=== PATIENT | female | born 1945 | race Caucasian/White ===

== ENCOUNTER 2017-01-27 02:06 | Inpatient (IN) | payer OTHER, BC ==
[~2017-01-27] VITALS: Ht 147.3 cm; Wt 84.8 kg
[2017-01-27] VITALS (42 sets, daily range): BP systolic 79–120; BP diastolic 53–85
--- NOTE | ~2017-01-27 | EKG ---
[address] [place] [address] ELECTROCARDIOGRAM REPORT Name: DENAE FITCH Room #: 242-P ADM IN M.R.#: [id number] Admission: 01/27/17 Attend Phys: Porfirio Núñez Discharge: Date of : 49 Report #: [id number] THIS REPORT FOR: //name// [facility] ED Test Date: 2017-01-27 Test Time: 02:08:15 Pat Name: DENAE FITCH Department: Room: 242 Gender: F End Matcher: [id number] : 1945 Requested By: Ana Canas Order Number: [id number] MD: Lukas Lei Measurements Intervals [place] Rate: 101 P: 57 [place]: 169 QRS: -55 QRSD: 121 T: 71 QT: 379 QTc: 492 Interpretive Statements Sinus tachycardia IVCD, consider atypical RBBB Left ventricular hypertrophy Anterolateral infarct, acute (LAD) No previous ECG available for comparison Electronically Signed On 01-27-2017 8:28:51 CDT by Lukas Lei [email or web address] <ELECTRONICALLY SIGNED> By: Lukas Lei MD, [facility] 01/27/17 0828 7 7 Lukas Lei MD, [facility] /EPI
--- NOTE | ~2017-01-27 | CATHLAB ---
[facility] [address] [place] [address] INVASIVE PROCEDURE REPORT Name: DENAE FITCH Room #: 242-P ADM IN M.R.#: [id number] Admission: 01/27/17 Attend Phys: Porfirio Nielsen Discharge: Date of : 49 Date of Service: 01/27/17 1059 Report #: [id number] THIS REPORT FOR: //name// APPROVED REPORT Patient Details Patient Status: In-Patient Room #: The patient is a 71 year-old female Event Personnel Porfirio Núñez International Manager, Marcia Casillas RN RN, Teddy Bejarano RN Monitor, Yojana Kim RTR Monitor, Candelaria Reed Scrub Procedures Performed Art Access - R femoral artery* Coronary Angiography Only [id number] CORANG RADHA Place w/wo Plasty Single LAD [id number] Initial Mod Sed Same Phys/QHP Gr5y 123488 Indication STEMI (>0 to less than or equal to 6 hours) Risk Factors Arterial Hypertension, Hypercholesterolemia Procedure Narrative The patient was brought emergently to the Cardiac Catheterization Laboratory and was prepped and draped in a sterile manner. The Right Groin^ was infiltrated with 1% Lidocaine subcutaneous anesthesia. A PINNACLE 6FR Sheath #[id number] sheath was inserted into the RFA 6fr^. Coronary angiography was performed using coronary diagnostic catheters. The right coronary system was accessed and visualized with a JR 4 catheter. The left coronary system was accessed and visualized with a VISTA 6FR JL4 #[id number] catheter. The patient tolerated the procedure well and there were no complications associated with the procedure. Intraoperative Conscious Sedation Sedation start time: 03:03 Case end Time: 03:32 Versed 2.0 mg Fluoro Time: 7.23 minutes Dose: DAP 7953.20 cGycm2 1187 mGy Contrast Type and Amount: Omnipaque 135 ml [facility] [place] [address] INVASIVE PROCEDURE REPORT Name: DENAE FITCH Room #: 242-P [facility] IN .R.#: [id number] Admission: 01/27/17 Attend Phys: Porfirio Nielsen Discharge: Date of : 49 Date of Service: 01/27/17 1059 Report #: [id number] Diagnostic Cath Left Main NORMAL ORIGIN AND MODERATE SIZE BIFURCATES INTO LAD,LCX, AND RAMUS. FREE OF HIGH GRADE OBSTRUCTIVE LESIONS. LAD Moderate caliber vessel which is totally occluded proximally before the first septal twister doffer. No collateral flow from left circumflex or right coronary artery noted. post revascularization: The LAD is widely pain in the sciatic of previous high-grade stenosis. The stent appears to be fully deployed. NEPTALI-3 flow was established. The vessel courses in the anterior interventricular sulcus cauterized smaller second diagonal and multiple septal perforators feel high-grade disease as it terminates small-caliber bifurcating vessel at the apex. Circumflex Moderate caliber vessel has a mild 15-20% proximal plaque at the continues in the AV groove giving rise to small marginal branch and a moderate caliber lateral wall marginal. No significant obstructive lesions are noted beyond the initial irregularity. Right Coronary Moderate to large caliber vessel normal origin. Has luminal irregularities as it proceeds give rise to posterior descending posterior lateral branch free of high-grade stenosis. R PDA Moderate caliber vessel coursing in the posterior interventricular sulcus free of high-grade disease Left Ventriculography Left Ventriculography was not performed. Hemodynamics The aortic pressure is 98/71 mmHg with a mean of 85 mmHg. PCI Technique Lesion Anticoagulation was achieved with Angiomax. Percutaneous coronary intervention was performed on the proximal left anterior descending artery segment. The lesion stenosis prior to intervention was 100% with NEPTALI 0 flow. A VISTA 6FR JL4 #[id number] Guide Catheter was used to engage the ostium. A Luge Wire (J) .014 X 182CM #[id number] Interventional Guidewire was used to cross the lesion. BALLOON DILATION A Balloon catheter Sprinter OTW 2.5 x 15 #[id number] was inserted and inflated up to 9.00atm for 22seconds. Additional Inflation: 9.00atm for 10seconds. Additional Inflation: 4.00atm for 23seconds. Post-balloon dilatation of the vessel is small in caliber type III with a diagonal branch has a proximal lesion noted up. This is eccentric and ranging at approximately 60-75%. The vessel is small in caliber under 1.5 mm in diameter. The LAD then courses device was smaller second's septals and diagonal branches as it terminates in [facility] [address] [place] [address] INVASIVE PROCEDURE REPORT Name: DENAE FITCH Room #: 242-P ADM IN M.R.#: [id number] Admission: 01/27/17 Attend Phys: Porfirio Nielsen Discharge: Date of : 49 Date of Service: 01/27/17 1059 Report #: [id number] the apex of the heart STENT DEPLOYMENT A drug-eluting stent RESOLUTE OTW 2.25 X 22 #[id number] was inserted and inflated up to 9.00atm for 10seconds. Post-stenting the vessel is widely patent with some decrease flow. Nicardipine and IV nitroglycerin were given with NEPTALI-3 flow reestablished. The vessel tapers towards the apex free of significant obstructive lesions. Final angiography reveals % stenosis with NEPTALI 3 flow. Conclusion 1. Coronary artery disease single vessel involving the proximal LAD 2. Successful percutaneous revascularization and RADHA stent deployment to the ulcerated eccentric plaque with excellent NEPTALI-3 flow Recommendations Cardiac Risk Reduction Program Aggressive Medical Therapy Medications Administered Prasugrel Cardiac Rehabilitation Referral <ELECTRONICALLY SIGNED> By: Porfirio Núñez MD 01/27/17 1059 1059 1059 Porfirio Núñez MD /INF
--- NOTE | ~2017-01-27 | EKG ---
[place] [address] [facility] [place] [address] ELECTROCARDIOGRAM REPORT Name: DENAE FITCH Room #: 210-P ADM IN M.R.#: [id number] Admission: 01/27/17 Attend Phys: Porfirio Núñez Discharge: Date of : 49 Report #: [id number] THIS REPORT FOR: //name// [facility] Test Date: 2017-01-28 Test Time: 05:54:13 Pat Name: DENAE FITCH Department: Room: 210 P Gender: F Fisher Net: KATHE : 1945 Requested By: Porfirio Núñez Order Number: [id number] MD: Lukas Lei Measurements Intervals [place] Rate: 110 P: 47 VT: 150 QRS: 52 QRSD: 83 T: 67 QT: 334 QTc: 452 Interpretive Statements Sinus tachycardia Probable anteroseptal infarct, recent Lateral leads are also involved Compared to ECG 01/27/2017 04:33:29 Injury pattern is less pronounced Electronically Signed On 01-28-2017 8:11:00 CDT by Lukas Lei [email or web address] <ELECTRONICALLY SIGNED> By: Lukas Lei MD, [facility] 01/28/17810 0554 0554 Lukas Lei MD, [facility] /EPI
--- NOTE | ~2017-01-27 | EKG ---
[address] [address] ELECTROCARDIOGRAM REPORT Name: DENAE FITCH Room #: 242-P ADM IN M.R.#: [id number] Admission: 01/27/17 Attend Phys: Porfirio Núñez Discharge: Date of : 49 Report #: [id number] THIS REPORT FOR: //name// [facility] Test Date: 2017-01-27 Test Time: 04:33:29 Pat Name: DENAE FITCH Department: Room: 242 P Gender: F Stitching Department Supervisor: KRISTEN : 1945 Requested By: Paris Canas Order Number: [id number] MD: Lukas Lei Measurements Intervals [place] Rate: 104 P: 48 RI: 173 QRS: 19 QRSD: 95 T: 55 QT: 377 QTc: 496 Interpretive Statements Sinus tachycardia Anterolateral infarct, acute No previous ECG available for comparison Electronically Signed On 01-27-2017 8:29:52 CDT by Lukas Lei [email or web address] <ELECTRONICALLY SIGNED> By: Lukas Lei MD, [facility] 01/27/17 0829 0433 0433 Lukas Lei MD, [facility] /EPI
[~2017-01-27 02:06] MED LIST: ALIGN4 MG PO; ATIVAN1 MG PO; CARVEDILOL12.5 MG PO; CYMBALTA60 MG PO; NORCO 5-325 TA1 EACH PO; REMERON15 MG PO; SEROQUEL 100 M100 M1 PO
[2017-01-27 02:21] LABS: ABSOLUTE NEUTROPHILS 6.9 thou/uL (1.4-8.2); BASOPHILS 0.5 % (0.0-2.0); EOSINOPHILS 0.9 % (0.0-3.0); HEMATOCRIT 37.2 % (37.0-47.0); HEMOGLOBIN 12.7 gm/dL (12.0-15.0); LYMPHOCYTES 14.8 % (24.0-44.0); MCH 31.8 pg (26.0-34.0); MCHC 34.1 g/dL (28.0-37.0); MCV 93.2 fL (80.0-100.0); MONOCYTES 7.8 % (1.0-8.0); PLATELET COUNT 131 thou/uL (150-400); RBC 3.99 mil/uL (4.20-5.00); RDW 15.3 % (10.5-14.5); WBC 9.1 thou/uL (4.0-11.0)
[2017-01-27 02:22] LABS: MANUAL DIFF NO
[2017-01-27 02:28] LABS: CALCIUM 8.6 mg/dL (8.5-10.1); CREATININE 0.8 mg/dL (0.6-1.0); POTASSIUM 3.8 mmol/L (3.5-5.1)
[2017-01-27 02:34] LABS: APTT 27.7 Seconds (24.5-32.8); PROTIME 10.1 Seconds (9.3-11.4)
[2017-01-27 02:37] LABS: TROPONIN-I 8.32 ng/mL (<0.04-0.07)
[2017-01-27] MEDS ORDERED: SEROQUEL 25 MG25 M1 PO (09:25)
[2017-01-28 03:55] LABS: HEMATOCRIT 30.9 % (37.0-47.0); HEMOGLOBIN 10.3 gm/dL (12.0-15.0); MCH 31.7 pg (26.0-34.0); MCHC 33.2 g/dL (28.0-37.0); MCV 95.5 fL (80.0-100.0); RBC 3.23 mil/uL (4.20-5.00); RDW 15.3 % (10.5-14.5); WBC 9.1 thou/uL (4.0-11.0)
[2017-01-28 04:07] LABS: ANION GAP 9 mmol/L (7-16); BUN 12 mg/dL (7-18); CALCIUM 7.7 mg/dL (8.5-10.1); CHLORIDE 104 mmol/L (98-107); CHOLESTEROL 102 mg/dL (<200); CO2 22 mmol/L (21-32); CREATININE 0.8 mg/dL (0.6-1.0); GLUCOSE 123 mg/dL (74-106); HDL CHOLESTEROL 44 mg/dL (>40); LDL CHOLESTEROL 47 mg/dL (<100); SODIUM 135 mmol/L (136-145); TC:HDL 2.3 Ratio (Not establshd); TRIGLYCERIDE 57 mg/dL (<150); VLDL 11 mg/dL (<40)
[2017-01-28 04:12] LABS: SERUM ASSESSMENT Clear
[2017-01-28 04:20] VITALS: BP 105/64
[2017-01-28 07:35] VITALS: BP 122/74
[2017-01-28 11:38] VITALS: BP 127/76
[2017-01-28 13:29] LABS: ABG SAMPLE TYPE ARTERIAL; BE(vivo) -3.6 mmol/L (-2 to +3); HCO3 20.9 mmol/L (22.0-26.0); LACTATE 1.38 mmol/L (0.5-2.0); O2Hb 94.7 % (92.0-98.0); PO2 82.1 mmHg (80.0-100.0); STICK SITE R.RADIAL; pH 7.382 (7.360-7.450)
[2017-01-28 15:29] VITALS: BP 121/73
[2017-01-28 19:59] VITALS: BP 129/66
[2017-01-29 04:11] VITALS: BP 103/66; BP 149/95
[2017-01-29 07:05] VITALS: BP 129/79
[2017-01-29 11:11] VITALS: BP 129/84
[2017-01-29 15:26] VITALS: BP 139/100
[2017-01-29 20:02] VITALS: BP 122/59
[2017-01-29 23:45] VITALS: BP 117/78
[2017-01-30 03:58] VITALS: BP 142/82
[2017-01-30 06:55] VITALS: BP 117/71
[2017-01-30] MEDS ORDERED: EFFIENT10 MG PO (10:12)
[2017-01-30] MEDS ORDERED: LISINOPRIL5 MG PO (10:12)
[2017-01-30] MEDS ORDERED: ASPIRIN325 PO (10:12)
[2017-01-30] MEDS ORDERED: LIPITOR40 MG PO (10:12)
[2017-01-30] MEDS ORDERED: NITROGLYCERIN0.4 MG SUBLING (10:12)
[2017-01-30 11:58] VITALS: BP 117/84
[2017-01-30 13:13] VITALS: BP 117/84
== END 2017-01-30 14:21 | disposition home or self-care (01) | DRG 246 ==
LOC: ER 02:06 → ICU 02:42 → TBA 02:42 → ICU 03:10 → 2N 18:17
PROVIDERS: Emergency Medicine; Internal Medicine
DX: I21.09 ST elevation (STEMI) myocardial infarction involving other coronary artery of anterior wall (principal); J81.0 Acute pulmonary edema; I10 Essential (primary) hypertension; F32.9 Major depressive disorder, single episode, unspecified; F41.9 Anxiety disorder, unspecified; I25.10 Atherosclerotic heart disease of native coronary artery without angina pectoris; K21.9 Gastro-esophageal reflux disease without esophagitis; E78.5 Hyperlipidemia, unspecified; M19.90 Unspecified osteoarthritis, unspecified site; E66.9 Obesity, unspecified; Z88.1 Allergy status to other antibiotic agents; Z68.39 Body mass index [BMI] 39.0-39.9, adult; Z90.49 Acquired absence of other specified parts of digestive tract; Z82.49 Family history of ischemic heart disease and other diseases of the circulatory system; Z83.3 Family history of diabetes mellitus
CPT/HCPCS: 10081

== ENCOUNTER 2017-02-04 11:37 | Inpatient (IN) | payer OTHER, BC ==
[~2017-02-04] VITALS: Ht 177.8 cm; Wt 80.6 kg
--- NOTE | ~2017-02-04 | 2DMMODE ---
[facility] [address] [place] [address] 2 D/M-MODE ECHOCARDIOGRAM Name: DENAE FITCH Room #: 209-P ADM IN M.R.#: [id number] Admission: 02/04/17 Attend Phys: Chin Avalos Discharge: Date of : 49 Date of Service: 02/04/17 1617 Report #: [id number] THIS REPORT FOR: //name// APPROVED REPORT Study performed: 02/04/2017 15:30:42 EXAM: Limited 2D Echocardiogram Patient Location: Bedside Room #: 209 Status: routine BSA: 1.74 HR: 97 bpm BP: 113/92 mmHg Other Information Study Quality: Good Indications Dyspnea CAD Hypertension/HDD S^P STEMI Left Ventricle The left ventricle is normal size. There is akinesis in the apex wall. There is akinesis in the septal wall. There is akinesis in the apical anterior wall. There is severe hypokinesis in the mid-anterior wall. There is moderate to severe hypokinesis in the apical inferior wall. There is normal left ventricular wall thickness. Left ventricular ejection fraction is to severely decreased. LVEF is 20-25%. The left ventricular diastolic function is normal. Right Ventricle The right ventricle is normal size. Atria Left atrium is dilated. Right atrium is at the upper limits of normal. Aortic Valve The aortic valve is normal in structure. Mitral Valve The mitral valve is normal in structure. [facility] [address] [place] [address] 2 D/M-MODE ECHOCARDIOGRAM Name: DENAE FITCH Room #: 209-P ADM IN M.R.#: [id number] Admission: 02/04/17 Attend Phys: Chin Avalos Discharge: Date of : 49 Date of Service: 02/04/177 Report #: [id number] Tricuspid Valve The tricuspid valve is normal in structure. Pulmonic Valve Pulmonic valve is not well visualized. Great Vessels The aortic root is normal in size. The inferior vena cava is not well visualized. Pericardium Small pericardial effusion. <Conclusion> The left ventricle is normal size. There is akinesis in the apex wall. There is akinesis in the septal wall. There is akinesis in the apical anterior wall. There is severe hypokinesis in the mid-anterior wall. There is moderate to severe hypokinesis in the apical inferior wall. LVEF is 20-25%. Left atrium is dilated. The mitral valve is normal in structure. The tricuspid valve is normal in structure. Pulmonic valve is not well visualized. <ELECTRONICALLY SIGNED> By: Porfirio Núñez MD 02/04/171616 16 1617 Porfirio Núñez MD /INF
--- NOTE | ~2017-02-04 | EKG ---
[address] [place] [address] ELECTROCARDIOGRAM REPORT Name: DENAE FITCH Room #: 209-P ADM IN M.R.#: [id number] Admission: 02/04/17 Attend Phys: Chin Nieves Discharge: Date of : 49 Report #: [id number] THIS REPORT FOR: //name// [facility] ED Test Date: 2017-02-04 Test Time: 12:16:58 Pat Name: DENAE FITCH Department: Room: 209 Gender: F Computer Systems Support Specialist: rae : 1945 Requested By: Rajendra Li Order Number: [id number] MD: Lukas Lei Measurements Intervals [place] Rate: 92 P: 59 GA: 131 QRS: 70 QRSD: 98 T: 81 QT: 361 QTc: 447 Interpretive Statements Sinus rhythm Atrial premature complexes Anterior infarct, recent Compared to ECG 01/28/2017 05:54:13 Atrial premature complex(es) now present Electronically Signed On 02-05-2017 8:08:27 CDT by Lukas Lei [email or web address] <ELECTRONICALLY SIGNED> By: Lukas Lei MD, [facility] 02/05/17 0808 1216 1216 Lukas Lei MD, [facility] /EPI
--- NOTE | ~2017-02-04 | EKG ---
[address] [place] [address] ELECTROCARDIOGRAM REPORT Name: DENAE FITCH Room #: 209-P ADM IN M.R.#: [id number] Admission: 02/04/17 Attend Phys: Chin Nieves Discharge: Date of : 49 Report #: [id number] THIS REPORT FOR: //name// [facility] ED Test Date: 2017-02-04 Test Time: 12:43:20 Pat Name: DENAE FITCH Department: Room: 209 Gender: F Playground Official: GINA : 1945 Requested By: Rajendra Li Order Number: [id number] MD: Lukas Lei Measurements Intervals [place] Rate: 94 P: 49 OK: 140 QRS: 64 QRSD: 90 T: 68 QT: 349 QTc: 437 Interpretive Statements Sinus rhythm Atrial premature complexes Anteroseptal infarct, age indeterminate Lateral leads are also involved Compared to ECG 01/28/2017 05:54:13 Atrial premature complex(es) now present Electronically Signed On 02-05-2017 8:08:40 CDT by Lukas Lei [email or web address] <ELECTRONICALLY SIGNED> By: Lukas Lei MD, [facility] 02/05/17 0808 1243 1243 Lukas Lei MD, [facility] /EPI
--- NOTE | ~2017-02-04 | HC ---
[facility] [place] [address] CONSULTATION Name: DENAE FITCH Room #: 209-P ADM IN M.R.#: [id number] Admission: 02/04/17 Attend Phys: Chin Nieves Discharge: Date of : 49 Report #: [id number] THIS REPORT FOR: //name// CC: [place] Nieves DATE OF SERVICE: 02/04/2017 PULMONARY CONSULTATION REFERRING PROVIDERS: Dr. Nieves and Dr. Porfirio Núñez. REASON FOR CONSULTATION: Pleural effusion. CHIEF COMPLAINT: Shortness of breath and cough. HISTORY OF PRESENT ILLNESS: Our group was asked to see the patient in consultation while hospitalized at [facility]. This is a pleasant 71-year-old woman without any past pulmonary history, presented to the emergency department with complaints for increasing shortness of breath, was just hospitalized 1 week ago with myocardial infarction requiring percutaneous intervention with emergency stent placement to the LAD, discharged on anticoagulant therapy. The patient denies any other pulmonary history. A very remote history of tobacco use. Cough has been nonproductive, had difficulty lying flat due to increased shortness of breath and nonproductive cough, also has had some chills, no fevers. Has noted sweats with exertional dyspnea. Some wheezing that improved with bronchodilators in the emergency department. A CT scan of the chest done for PE protocol in the Emergency Department revealed left greater than right pleural effusion with associated atelectasis. ProBNP is also markedly elevated. Echocardiogram today revealed significant anterior wall hypokinesis with an ejection fraction of about 25%. ALLERGIES: INCLUDE ERYTHROMYCIN. PAST MEDICAL HISTORY: 1. History of coronary artery disease, status post anterior wall myocardial infarction 1 week ago. 2. History of cardiomyopathy. 3. History of hypertension. 4. Depression. 5. Anxiety. OUTPATIENT MEDICATIONS: Include atorvastatin, lisinopril, Effient, aspirin, nitroglycerin, Cymbalta, Ativan, Seroquel, carvedilol, Remeron. SOCIAL HISTORY: The patient has remote tobacco history. No alcohol [facility] [address] [place] [address] CONSULTATION Name: DENAE FITCH Room #: 209-P [facility] IN M.R.#: [id number] Admission: 02/04/17 Attend Phys: Chin Nieves Discharge: Date of : 49 Report #: [id number] consumption. Currently is retired. Lives with son. FAMILY HISTORY: Negative for any significant pulmonary disease. REVIEW OF SYSTEMS: CONSTITUTIONAL: No fevers, chills, or sweats. ENT: No upper respiratory congestion, rhinorrhea, or dysphagia. CARDIOVASCULAR: As described in HPI. GASTROINTESTINAL: No nausea, vomiting, diarrhea, constipation or abdominal pain, reflux. GENITOURINARY: No dysuria, no frequency. INTEGUMENT: Denies any new rash. MUSCULOSKELETAL: Some mild lower extremity edema. In general, overall some weight gain over the last several months. PHYSICAL EXAMINATION: VITAL SIGNS: The patient is afebrile, pulse 80s, respiratory rate 18, blood pressure 123/76. GENERAL: This is a diminutive, but obese elderly woman in no distress. HEENT: Clear oropharynx, Mallampati 2 airway. NECK: Supple, no lymphadenopathy. LUNGS: Diminished in the bases, occasional expiratory wheeze. CARDIOVASCULAR: Heart was irregular. No murmurs noted. ABDOMEN: Soft, nontender, no masses. EXTREMITIES: With trace edema. They are warm with 2+ pulses. LABORATORY DATA: Arterial blood gas on 2 liters revealed pH 7.41, pCO2 of 41, pO2 96, bicarbonate 25. Sodium 133, potassium 4.5, chloride 99, bicarbonate 23, BUN 14, creatinine 0.7, glucose 132, troponin was 2.75. ProBNP is 16,385. White blood cell count 8000, hemoglobin 11, hematocrit 34, platelet count 268. IMPRESSION: 1. Pleural effusions, left greater than right. 2. thoracentesis at this time and appears to may be have difficulties with holding anticoagulant therapy for any procedures. In this regard, given recent stent placements to the left anterior descending, we continue after diuresis. 3. Atelectasis versus infiltrate left lower lobe predominant, consider adding antibiotic therapy if any fever, increased dyspnea, oxygen requirements or change in chest radiograph. 4. Recent myocardial infarction. 5. Cardiomyopathy. 6. [place] [address] CONSULTATION Name: DENAE FITCH Room #: 209-P ADM IN M.R.#: [id number] Admission: 02/04/17 Attend Phys: Chin Nieves Discharge: Date of : 49 Report #: [id number] SUGGESTIONS: As above. We will follow along with you. <ELECTRONICALLY SIGNED> By: Erlin Hernandez MD 02/05/17 1304 2158 2357 Erlin Hernandez MD /nt
[~2017-02-04 11:37] MED LIST changes: +ASPIRIN325 PO; +EFFIENT10 MG PO; +LIPITOR40 MG PO; +LISINOPRIL5 MG PO; +NITROGLYCERIN0.4 MG SUBLING; +SEROQUEL 25 MG25 M1 PO
[2017-02-04 11:40] VITALS: BP 161/85
[2017-02-04 12:28] LABS: HEMATOCRIT 33.6 % (37.0-47.0); HEMOGLOBIN 11.2 gm/dL (12.0-15.0); MCH 31.1 pg (26.0-34.0); MCHC 33.4 g/dL (28.0-37.0); MCV 93.2 fL (80.0-100.0); RBC 3.61 mil/uL (4.20-5.00); RDW 15.6 % (10.5-14.5); WBC 8.3 thou/uL (4.0-11.0)
[2017-02-04 12:44] LABS: CALCIUM 8.7 mg/dL (8.5-10.1); CREATININE 0.7 mg/dL (0.6-1.0); POTASSIUM 4.5 mmol/L (3.5-5.1)
[2017-02-04 12:54] LABS: TROPONIN-I 2.75 ng/mL (<0.04-0.07)
[2017-02-04 13:25] LABS: ABG SAMPLE TYPE ARTERIAL; BE(vivo) 0.8 mmol/L (-2 to +3); HCO3 25.4 mmol/L (22.0-26.0); LACTATE 1.33 mmol/L (0.5-2.0); O2(CT) 15.1 mL/dL (15.0-23.0); O2Hb 96.2 % (92.0-98.0); PCO2 40.6 mmHg (35.0-45.0); PO2 95.8 mmHg (80.0-100.0); STICK SITE R.RADIAL; pH 7.414 (7.360-7.450); sO2 97.4 % (92.0-98.0); tCO2 26.6 mmol/L (24.0-30.0)
[2017-02-04 14:27] VITALS: BP 141/84
[2017-02-04 14:42] VITALS: BP 113/92
[2017-02-04 20:35] VITALS: BP 123/76
[2017-02-05 00:12] VITALS: BP 143/86
[2017-02-05 04:25] LABS: HEMATOCRIT 34.4 % (37.0-47.0); HEMOGLOBIN 11.5 gm/dL (12.0-15.0); MCH 31.4 pg (26.0-34.0); MCHC 33.6 g/dL (28.0-37.0); MCV 93.6 fL (80.0-100.0); RBC 3.67 mil/uL (4.20-5.00); RDW 15.6 % (10.5-14.5); WBC 8.5 thou/uL (4.0-11.0)
[2017-02-05 04:35] VITALS: BP 127/83
[2017-02-05 04:39] LABS: CALCIUM 8.6 mg/dL (8.5-10.1); CREATININE 0.8 mg/dL (0.6-1.0); POTASSIUM 3.7 mmol/L (3.5-5.1)
[2017-02-05 04:48] LABS: ALBUMIN 2.7 g/dL (3.4-5.0)
[2017-02-05 04:53] LABS: TROPONIN-I 1.67 ng/mL (<0.04-0.07)
[2017-02-05 07:05] VITALS: BP 139/66
[2017-02-05 07:12] LABS: GLYCOHEMOGLOBIN (HGB A1C) 5.7 % (4.8-5.6)
[2017-02-05 11:15] VITALS: BP 94/55
[2017-02-05 15:15] VITALS: BP 99/61
[2017-02-05 19:53] VITALS: BP 92/57
[2017-02-06 03:29] VITALS: BP 119/62
[2017-02-06 04:46] LABS: ALBUMIN 2.7 g/dL (3.4-5.0); CALCIUM 8.6 mg/dL (8.5-10.1); CREATININE 0.9 mg/dL (0.6-1.0); PHOSPHORUS 3.7 mg/dL (2.5-4.9); POTASSIUM 3.8 mmol/L (3.5-5.1)
[2017-02-06 07:23] VITALS: BP 120/80
[2017-02-06] MEDS ORDERED: LASIX 40 MG TAB40 M2 PO (08:57)
[2017-02-06 10:32] VITALS: BP 120/80
[2017-02-06 10:43] VITALS: BP 120/80
[2017-02-06 11:10] VITALS: BP 103/68
[2017-02-06 13:49] VITALS: BP 120/80
== END 2017-02-06 14:02 | disposition home or self-care (01) | DRG 291 ==
LOC: ER 11:37 → EROBS 14:01 → 2N 14:01 → ENTRNSPT 02-06 13:49 → EDTRNSPTSTS 02-06 13:54 → 2N 02-06 14:02
PROVIDERS: Emergency Medicine; Hospitalist
DX: I11.0 Hypertensive heart disease with heart failure (principal); J96.00 Acute respiratory failure, unspecified whether with hypoxia or hypercapnia; J98.11 Atelectasis; I50.21 Acute systolic (congestive) heart failure; F41.9 Anxiety disorder, unspecified; F32.9 Major depressive disorder, single episode, unspecified; I25.5 Ischemic cardiomyopathy; I25.10 Atherosclerotic heart disease of native coronary artery without angina pectoris; E66.9 Obesity, unspecified; Z79.899 Other long term (current) drug therapy; I25.2 Old myocardial infarction; Z88.1 Allergy status to other antibiotic agents; Z95.5 Presence of coronary angioplasty implant and graft; Z68.25 Body mass index [BMI] 25.0-25.9, adult; Z90.49 Acquired absence of other specified parts of digestive tract; Z95.1 Presence of aortocoronary bypass graft
CPT/HCPCS: 10081

== ENCOUNTER → 2017-08-19 | Outpatient (CLI) | payer OTHER, BC ==
[~2017-08-19] MED LIST changes: +LASIX 40 MG TAB40 M2 PO
--- NOTE | ~2017-08-19 | 2DMMODE ---
[facility] [address] [place] [address] 2 D/M-MODE ECHOCARDIOGRAM Name: DENAE FITCH Room #: REG [facility]#: [id number] Admission: 08/19/17 Attend Phys: Porfirio Nielsen Discharge: Date of : 49 Date of Service: 08/19/17 1446 Report #: [id number] THIS REPORT FOR: //name// APPROVED REPORT Study performed: 08/19/2017 14:02:19 EXAM: Comprehensive 2D, Doppler, and color-flow Echocardiogram Patient Location: Out-Patient Status: routine BSA: 1.73 HR: 77 bpm BP: 104/77 mmHg Rhythm: NSR Other Information Study Quality: Adequate Indications COPD CAD Hx: STEMI, STENT 2D Dimensions LVEF(%): 34.47 (>50%) IVSd: 9.81 (7-11mm) LVDd: 46.23 mm PWd: 9.81 (7-11mm) Ascending Ao: 33.93 (22-36mm) LVDs: 38.66 (25-40mm) Aortic Root: 27.94 mm Mitchell's LVEF: 34.47 % Left Ventricle The left ventricle is normal size. There is normal left ventricular wall thickness. Left ventricular systolic function is moderately decreased. LVEF is 30-35%. Right Ventricle Right ventricle is at the upper limits of normal. Atria The left atrium size is normal. Right atrium is at the upper limits of normal. [facility] [address] [place] [address] 2 D/M-MODE ECHOCARDIOGRAM Name: DENAE FITCH Room #: REG [facility]#: [id number] Admission: 08/19/17 Attend Phys: Porfirio Nielsen Discharge: Date of : 49 Date of Service: 08/19/17 1446 Report #: [id number] Aortic Valve Aortic valve is calcified. No hemodynamically significant valvular aortic stenosis. Mitral Valve There is mitral annular calcification. Mitral valve leaflets are mildly thickened. Tricuspid Valve The tricuspid valve is normal in structure. Pulmonic Valve Pulmonic valve is not well visualized. Great Vessels The aortic root is normal in size. The ascending aorta is normal in size. IVC is normal in size and collapses >50% with inspiration. Pericardium There is no pericardial effusion. <Conclusion> The left ventricle is normal size. Left ventricular systolic function is moderately decreased. LVEF is 30-35%. Right ventricle is at the upper limits of normal. Aortic valve is calcified. No hemodynamically significant valvular aortic stenosis. There is mitral annular calcification. Mitral valve leaflets are mildly thickened. The tricuspid valve is normal in structure. Pulmonic valve is not well visualized. There is no pericardial effusion. <ELECTRONICALLY SIGNED> By: Porfirio Núñez MD 08/19/17 1446 1446 1446 Porfirio Núñez MD /INF
== END ==
LOC: CV 10:00
DX: I25.10 Atherosclerotic heart disease of native coronary artery without angina pectoris (principal); I05.9 Rheumatic mitral valve disease, unspecified; J44.9 Chronic obstructive pulmonary disease, unspecified

== ENCOUNTER → 2018-09-03 | Outpatient (CLI) | payer OTHER, BC ==
--- NOTE | 2018-09-03 09:57 | 2DMMODE ---
[facility] [employer] [place] [address] 2 D/M-MODE ECHOCARDIOGRAM Name: DENAE FITCH Room #: REG [facility]#: [id number] ������������� Admission: 09/03/18 ������������� Attend Phys: Porfirio Nielsen Discharge: ��� ������������� ��� Date of : 49 Date of Service: 09/03/18 0957 �� Report #: [id number] �������� ��������������������������������������������[id number] THIS REPORT FOR: //name// APPROVED REPORT Study performed: 09/03/2018 08:20:35 EXAM: Limited 2D, Doppler, and color-flow Echocardiogram Patient Location: Out-Patient Status: routine BSA: 1.75 HR: 82 bpm BP: 110/64 mmHg Rhythm: NSR Other Information Study Quality: Adequate Indications Abbreviated echo for LV function. Cardiomyopathy. Hx: IN, stent, HTN, HLP, DM. Aortic Valve AoV Peak Axel.: 1.52 m/s AO Peak Gr.: 9.20 mmHg Mitral Valve E/A Ratio: 0.8 MV Decel. Time: 154.56 ms MV E Max Axel.: 0.86 m/s MV A Axel.: 1.05 m/s MV PHT: 44.82 ms Tricuspid Valve TR Peak Axel.: 1.91 m/s RAP Estimate: 5.00 mmHg TR Peak Gr.: 14.65 mmHg PA Pressure: 20.00 mmHg Left Ventricle The left ventricle is normal size. Regional wall motion abnormalities are noted involving apex and septalanteroapical wall. There is normal left ventricular wall thickness. Left ventricular systolic function is moderately decreased. LVEF is 40%. Mild diastolic dysfunction is present (impaired relaxation pattern). [facility] [address] [place] [address] 2 D/M-MODE ECHOCARDIOGRAM Name: DENAE FITCH Room #: REG [facility]#: [id number] ������������� Admission: 09/03/18 ������������� Attend Phys: Porfirio Nielsen Discharge: ��� ������������� ��� Date of : 49 Date of Service: 09/03/18 0957 �� Report #: [id number] �������� ��������������������������������������������[id number] Aortic Valve Aortic valve is mildly calcified. No aortic regurgitation is present. There is no aortic valvular stenosis. Mitral Valve The mitral valve is normal in structure. Mild mitral regurgitation. Tricuspid Valve The tricuspid valve is normal in structure. Trace tricuspid regurgitation. Estimated PAP is 20mmHg. Great Vessels IVC is normal in size and collapses >50% with inspiration. Pericardium There is no pericardial effusion. <Conclusion> The left ventricle is normal size. Regional wall motion abnormalities are noted involving apex and septalanteroapical wall. LVEF is 40%. Aortic valve is mildly calcified. The mitral valve is normal in structure. Mild mitral regurgitation. The tricuspid valve is normal in structure. Trace tricuspid regurgitation. Estimated PAP is 20mmHg. There is no pericardial effusion. ��������������������������������������������� <ELECTRONICALLY SIGNED> ���������������������������������������� By: Porfirio Núñez MD ��������������������������������������������� 09/03/1857 6 Porfirio Núñez MD /INF
== END ==
LOC: CV 07:53
DX: I08.0 Rheumatic disorders of both mitral and aortic valves (principal); I11.0 Hypertensive heart disease with heart failure; I50.20 Unspecified systolic (congestive) heart failure; E78.5 Hyperlipidemia, unspecified; E11.9 Type 2 diabetes mellitus without complications

== ENCOUNTER 2019-05-29 10:44 | Inpatient (IN) | payer OTHER, BC ==
[~2019-05-29] VITALS: Ht 147.3 cm; Wt 81.6 kg
[2019-05-29 10:45] VITALS: BP 137/76
[2019-05-29] MEDS ORDERED: LEVO-T25 MCG PO (11:01)
[2019-05-29] MEDS ORDERED: METFORMIN HCL500 M3 PO (11:01)
[2019-05-29] MEDS ORDERED: PLAVIX 75 MG TA75 MG PO (11:01)
[2019-05-29] MEDS ORDERED: ENTRESTO 49 MG1 EACH PO (11:02)
[2019-05-29] MEDS ORDERED: ASA81BEC PO (11:02)
[2019-05-29] MEDS ORDERED: ZOLOFT100 MG PO (11:02)
[2019-05-29] MEDS ORDERED: SPIRONOLACTONE25 M1 PO (11:02)
[2019-05-29 12:14] LABS: URINE BILIRUBIN NEGATIVE (Negative); URINE BLOOD NEGATIVE (Negative); URINE CLARITY CLEAR; URINE COLOR YELLOW; URINE GLUCOSE-RANDOM* NEGATIVE (Negative); URINE KETONES NEGATIVE (Negative); URINE NITRITE-REFLEX NEGATIVE (Negative); URINE PROTEIN (DIPSTICK) NEGATIVE (Negative); URINE UROBILINOGEN 0.2 E.U./dl (0.2-1.0)
[2019-05-29 12:15] LABS: URINE LEUKOCYTES-REFLEX 1+ (Negative)
[2019-05-29 12:25] LABS: ABSOLUTE NEUTROPHILS 4.5 thou/uL (1.4-8.2); BASOPHILS 0.6 % (0.0-2.0); HEMATOCRIT 34.1 % (37.0-47.0); HEMOGLOBIN 11.1 gm/dL (12.0-15.0); MCHC 32.5 g/dL (28.0-37.0); MCV 92.2 fL (80.0-100.0); MONOCYTES 6.4 % (1.0-8.0); PLATELET COUNT 174 thou/uL (150-400); RBC 3.69 mil/uL (4.20-5.00); RDW 16.1 % (10.5-14.5); WBC 5.8 thou/uL (4.0-11.0)
[2019-05-29 12:38] LABS: ANION GAP 9 mmol/L (7-16); BUN 16 mg/dL (7-18); CHLORIDE 105 mmol/L (98-107); CO2 25 mmol/L (21-32); GLUCOSE 128 mg/dL (74-106); POTASSIUM 4.1 mmol/L (3.5-5.1); SODIUM 139 mmol/L (136-145)
[2019-05-29 12:40] LABS: BACTERIA-REFLEX None Seen /HPF (None Seen); CASTS None Seen /LPF (None Seen); CRYSTALS None Seen /LPF (None Seen); MUCUS 0-3 Light strn/LPF (None Seen); SQUAMOUS 4-10 Moderate /LPF (0-3); URINE RBC None Seen /HPF (0-2); URINE WBC-REFLEX 0-5 Rare /HPF (0-5)
[2019-05-29 12:48] LABS: ALBUMIN 3.6 g/dL (3.4-5.0); SGOT 20 U/L (15-37); SGPT 24 U/L (30-65); TOTAL BILIRUBIN 0.3 mg/dL (<0.1-1.0); TROPONIN-I <0.06 ng/mL (<0.06)
--- NOTE | 2019-05-29 15:00 | NUR ---
ASSUMED CARE OF PATIENT FROM EMERGENCY ROOM. PATIENT ARRIVED AT [facility] IN A WHEELCHAIR. PATIENT DENIES SI/HI. PATIENT PRESENTS WITH DEPRESSION AND ANXIETY. PATIENT ORIENTED TO UNIT. PATIENT ADMITTED VOLUNTARILY. PATIENT AMBULATES WITHOUT ASSISTANCE. VITAL SIGNS STABLE UPON ARRIVAL.
[2019-05-29 15:01] VITALS: BP 108/60
[2019-05-29 20:32] VITALS: BP 113/54
--- NOTE | 2019-05-30 02:00 | NUR ---
ASSUMED CARE AT START OF SHIFT FROM DAY SHIFT , PT SITTING IN DAYROOM, WATCHING TV , APPEAR CALM AND COOPERATIVE, DISCUSSED PLAN OF CARE AND AGREEABLE. PT ATE HS SNACK AND TOOK HS PO MEDICATION. AGRRED THAT SHE FEELS DEPRESSED BUT NOT HAVING SI/HI THOUGHTS. FREQ CHECKS PER PROTOCOL. PT RESTING QUIETLY THROUGHOUT ROUNDING WILL REPORT CHANGES OR ABNORMAL FINDINGS.
[2019-05-30 09:24] VITALS: BP 99/43
--- NOTE | 2019-05-30 10:10 | EKG ---
[place] [address] [facility] [place] [address] ELECTROCARDIOGRAM REPORT Name: DENAE FITCH Room #: 524A-A ADM IN M.R.#: [id number] Admission: 05/29/19 Attend Phys: Bobby Talbert DO Discharge: Date of : 49 Report #: [id number] THIS REPORT FOR: //name// [facility] ED Test Date: 2019-05-29 Test Time: 12:18:47 Pat Name: DENAE FITCH Department: Room: 52 Gender: F Staffing Program Manager: INNA : 1945 Requested By: Natacha Templeton Order Number: [id number] MD: Lukas Lei Measurements Intervals [place] Rate: 64 P: 44 OK: 157 QRS: 28 QRSD: 79 T: 84 QT: 414 QTc: 427 Interpretive Statements Sinus rhythm Anteroseptal infarct, age indeterminate Compared to ECG 02/24/2017 17:41:31 Sinus tachycardia no longer present Electronically Signed On 05-30-2019 10:10:27 SUPPLY CHAIN SPECIALIST by Lukas Lei [email or web address] <ELECTRONICALLY SIGNED> By: Lukas Lei MD, [facility] 05/30/19 1010 1218 121 Lukas Lei MD, [facility] /EPI
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
--- NOTE | 2019-05-30 19:34 | NUR ---
Alert and orientated X4. States her anxiety is a 6/10, much increased from yesterday. Denies pain, SI/HI. PRN ativan 0.5 mg PO given. When told how much was ordered she stated it wouldn't work that she gets 2 mg Ativan twice a day at home: 2mg in AM, then 1 mg each in afternoon and evening. Told her I would discuss with Dr. Talbert. Breath sounds clear t/o, bilaterally equal. Reg HR auscultated. Color pink with brisk capillary refill. BP 99 syst. Independent with voiding. Active bowel sounds over soft, rounded abdomen. Ambulates without difficulty t/o unit. 1500 Clarified with [facility] that she receives Ativan 2 mg in AM, then 1 mg in afternoon and evening per Dr. Talbert's request. Notified Dr. Talbert of clarification. Increased Ativan to 1 mg tid prn. When spoke with pt. she stated that anxiety was a 6/10 increased from 4/10 in late morning. No s/o distress. 183 No BG done today. Currently 108. Dr. Cole notified. Will continue with current plan. Pt. ambulating in unit and watching TV with peers.
[2019-05-30 19:51] VITALS: BP 91/47
--- NOTE | 2019-05-31 02:47 | NUR ---
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 AFFECT ANXIOUS. BRIGHT ON APPROACH. PLEASANT AND COOPERATIVE WITH ASSESSMENT PROCESS, ALL CARES AND MEDS. SOCIAL WITH STAFF AND SELECT PEERS. NO C/O. NO APPARENT DISTRESS. WILL CONTINUE TO MONITOR.
--- NOTE | 2019-05-31 12:30 | NUR ---
AT 0710 ASSUMED CARE OF PATIENT ON 05/31/19. PATIENT SLEEPING IN BED AT THIS TIME. AT 0735 PATIENT AWAKE AND ALERT X 4, DENIES ANY PAIN AT THIS TIME. DENIES SI/HI AND AVH. PATIENT GOAL FOR THE DAY IS TO TALK TO THE DR REGARDING MEDICATION. PATIENT IS CALM AND COOPERATIVE. PATIENT ASKS IF SHE CAN TAKE MEDICATION IN ROOM SHE HAS A PARTIAL AND NEEDS TO TAKE THEM OFF TO TAKE MEDICATION. AT 0800 PATIENT SITTING IN ROOM. MEDS TAKEN WHOLE WITHOUT DIFFICULTY. DENIES NEEDS AND WILL AMBULATE TO DAYROOM FOR BREAKFAST.
[2019-05-31 15:07] VITALS: BP 134/67
--- NOTE | 2019-05-31 15:29 | NUR ---
SW and doctor met with pt. Psych doctor talked with pt about PHP groups for aftercare. Pt said she has done this before and did not like it; she prefers 1-to-1 interactions as opposed to groups. She said Dr. Cervantes gave her a listing of psychotherapists before and she plans to get that from him again. She had an appt with Dr. Cervantes yesterday that she missed as she was inpatient on this unit. SW told her she can call her doctor's office and reschedule if she likes. Pt said she would like LIANET to do so. Pt also mentioned she has difficulty with transportation; she said that her [facility] only provides transportation on certain days. SW suggested [employer]; pt said she would like to enroll in that. SW assisted pt in filling out an application. LIANET contacted Dr. Cervantes and rescheduled pt's appt for 06/29 @1430. SW team will continue to follow pt during her stay on this unit.
[2019-05-31 15:39] VITALS: BP 134/67
--- NOTE | 2019-05-31 16:24 | NUR ---
LIANET gave pt a printout of her appt on with her psych doctor June 29 @1430. LIANET contacted pt's son and arranged transportation for pt 06/01 @1400. LIANET team will continue to follow pt during her stay on this unit.
[2019-05-31 20:07] VITALS: BP 101/40
--- NOTE | 2019-06-01 03:31 | NUR ---
ASSUMED CARE OF THIS PATIENT AT 1900. PLEASANT AND COOPERATIVE WITH ASSESSMENT PROCESS, ALL MEDS AND CARES. LOOKING FORWARD TO DISCHARGE. NO APPARENT DISTRESS. NO C/O. WILL CONTINUE TO MONITOR. BRIGHT, SOMEWHAT ANXIOUS.
--- NOTE | 2019-06-01 07:30 | NUR ---
ASSUMED CARE OF PATIENT THIS AM. PATIENT IN HER BEDROOM. PATIENT CALM CONTENT AND PLEASANT. PATIENT AMBULATES WITHOUT ASSISTANCE. PATIENT TAKES MEDICATIONS WHOLE WITH WATER. PATIENT DENIES PAIN. PATIENTS AFFECT SOFT AND RELAXED. PATIENTS ASSESSMENT SHOWS CLEAR BREATH SOUNDS, ACTIVE BOWEL SOUNDS, AND S1 S2 HEARD WITH AUSCULTATION.
[2019-06-01 08:00] VITALS: BP 120/49
[2019-06-01 08:56] VITALS: BP 120/49
[2019-06-01 09:00] VITALS: BP 120/49
[2019-06-01] MEDS ORDERED: SERTRALINE HCL50 MG PO (14:00)
[2019-06-01] MEDS ORDERED: REMERON 30 MG T30 M1 PO (14:01)
[2019-06-01] MEDS ORDERED: LORAZEPAM 1 MG T1 MG PO (14:01)
--- NOTE | 2019-06-01 14:30 | NUR ---
Patient discharged to home. Patients son came to take her home. Patient walked out to front door with son and with RN. Discharge instructions and prescriptions given to patient. Patient in good spirits and had no follow up questions at this time. Patient instructed to call back if any questions should arise.
--- NOTE | 2019-06-01 15:43 | NUR ---
[facility] D/C note. Godfrey contacted [facility] and confirmed the fax number for Dr. Trey Cervantes is [phone]. GODFREY faxed discharge docs to Dr. Cervantes's office. No other needs for [facility]FRE[facility] team to address at this time.
--- NOTE | 2019-06-04 12:51 | D ---
[facility] [place] [address] DISCHARGE SUMMARY Name: DENAE FITCH Room #: 524A-A [facility] IN M.R.#: [id number] Admission: 05/29/19 Attend Phys: Bobby Talbert DO Discharge: 06/01/19 Date of : 49 Report #: [id number] THIS REPORT FOR: //name// CC: Bobby Talbert [facility] DATE OF SERVICE: 06/01/2019 INPATIENT PSYCHIATRIC DISCHARGE SUMMARY ATTENDING PHYSICIAN: Bobby Talbert DO. APPLICATION TESTER: Mike Cole MD DISCHARGE DIAGNOSES: Unspecified anxiety disorder, also major depressive disorder by history. MEDICAL COMORBIDITIES: Include obesity, hypertension, diabetes mellitus, hypothyroidism, also history of coronary artery disease, hyperlipidemia. The patient will be discharging to independent living at [facility]. The patient's psychiatric care will be with Dr. Rajendra Cervantes, and Jimi STOREY. Staff did not give her a more recent appointment 06/29/2019 at 2:[address] Cervantes, and patient's son transported her home. DISCHARGE MEDICATIONS: Mirtazapine 7.5 mg p.o. q. 2300 p.r.n. insomnia; sertraline 125 mg p.o. daily for anxiety and depression, this is increased from 100 mg p.o. daily; lorazepam 1 mg p.o. at 0900, 1500, 2100 for anxiety; carvedilol 12.5 mg p.o. b.i.d.; atorvastatin 40 mg p.o. daily. Coreg is for coronary artery disease; atorvastatin for hyperlipidemia; Lasix for hypertension. She is on 40 mg daily of Lasix, levothyroxine 25 mcg p.o. daily for hypothyroidism. She has diabetes mellitus, metformin 500 mg ER 1 tab p.o. daily, Plavix 75 mg p.o. daily, spironolactone 25 mg p.o. daily, aspirin 81 mg p.o. daily and Entresto, which has heart failure and valsartan 49/51 mg 1 tab p.o. b.i.d. DIET: The patient should be on a diabetic diet, 1800 calorie. ACTIVITIES: She can resume regular activities. SOCIAL HISTORY: No alcohol, no illicit drugs. The patient was given the suicide crisis hotline information. REASON FOR ADMISSION: On 05/29/2019 is as follows: She complained of increasing anxiety symptoms began a week of admission. Reports increased financial stress. She has been going downhill, said shortness of breath, try [facility] [address] [place] [address] DISCHARGE SUMMARY Name: DENAE FITCH Room #: 524A-A [facility] IN ..#: [id number] Admission: 05/29/19 Attend Phys: Bobby Talbert DO Discharge: 06/01/19 Date of : 49 Report #: [id number] taking her prescribed medication and ran out of her lorazepam. Depression has been going on since April. She denied thoughts of SI. HOSPITAL COURSE: The patient was admitted to Geriatric Psychiatry Unit. Given the fact she is under treatment of Dr. Cervantes, did not want to do PHP, is in a relatively supported living arrangement. I elected to decrease her seritoniergic burden with increasing her sertraline modestly and making her Remeron p.r.n. and at lowest dose, which will be more antihistaminic. The patient had been taking 4 mg daily of lorazepam, I reduced it to 3 mg a day. Obviously, given her age of 74 over the greater period of time, recommendation would be for her to be tapered off in the next 6 months. On the day of discharge, she was not suicidal or homicidal, felt to be ready for return to the community. VITAL SIGNS: Temperature is 36.3, pulse 67, respirations 50, BP 120/49, O2 sat 93%. MUSCULOSKELETAL: Normal gait and station. MENTAL STATUS EXAMINATION: This is a well-developed, morbidly obese female appearing stated age. Attention limited. Concentration limited. Speech is normal rate. Thought process is linear and goal directed. Thought content focused on discharge. No psychomotor agitation or psychomotor retardation. Denied SI or HI. Denied hopelessness, helplessness. Denied auditory, visual, or tactile hallucinations. Memory not formally tested. Insight fair. Judgment fair. Fund of knowledge average. Also, the patient was sleeping well overnight. No panic attacks within 24 hours of discharge. <ELECTRONICALLY SIGNED> By: Bobby Talbert DO 06/04/19 1251 0932 1140 Bobby Talbert DO /nt
== END 2019-06-01 15:15 | disposition home or self-care (01) | DRG 880 ==
LOC: ER 10:44 → EROBS 14:31 → SBH 14:31
PROVIDERS: Physician Assistant; ADMIT Psychiatry & Neurology Psychiatry
DX: F41.9 Anxiety disorder, unspecified (principal); F32.9 Major depressive disorder, single episode, unspecified; I10 Essential (primary) hypertension; E11.9 Type 2 diabetes mellitus without complications; I25.10 Atherosclerotic heart disease of native coronary artery without angina pectoris; E03.9 Hypothyroidism, unspecified; Z79.82 Long term (current) use of aspirin; Z79.899 Other long term (current) drug therapy; I25.2 Old myocardial infarction; Z95.5 Presence of coronary angioplasty implant and graft; Z88.1 Allergy status to other antibiotic agents; Z90.49 Acquired absence of other specified parts of digestive tract; Z81.8 Family history of other mental and behavioral disorders
CPT/HCPCS: 10880

== ENCOUNTER → 2019-06-06 | Outpatient (CLI) | payer OTHER, BC ==
[~2019-06-06] MED LIST changes: +ASA81BEC PO; +ENTRESTO 49 MG1 EACH PO; +LEVO-T25 MCG PO; +LORAZEPAM 1 MG T1 MG PO; +METFORMIN HCL500 M3 PO; +PLAVIX 75 MG TA75 MG PO; +REMERON 30 MG T30 M1 PO; +SERTRALINE HCL50 MG PO; +SPIRONOLACTONE25 M1 PO; +ZOLOFT100 MG PO
== END ==
LOC: SJCVC 13:15
DX: I21.9 Acute myocardial infarction, unspecified (principal); I25.5 Ischemic cardiomyopathy; I50.20 Unspecified systolic (congestive) heart failure; E78.5 Hyperlipidemia, unspecified; Z79.899 Other long term (current) drug therapy; Z79.82 Long term (current) use of aspirin; Z88.1 Allergy status to other antibiotic agents

== ENCOUNTER → 2020-07-25 | Outpatient (CLI) | payer OTHER, BC | LOC: SJCVC 10:17 | PROVIDERS: ATTEND Internal Medicine | DX: R94.31 Abnormal electrocardiogram [ECG] [EKG] (principal); I25.5 Ischemic cardiomyopathy; I50.20 Unspecified systolic (congestive) heart failure; E78.5 Hyperlipidemia, unspecified; Z88.1 Allergy status to other antibiotic agents; Z79.82 Long term (current) use of aspirin; Z79.899 Other long term (current) drug therapy ==

== ENCOUNTER → 2020-10-12 | Outpatient (CLI) | payer OTHER, BC | LOC: BC 09:22 | PROVIDERS: ATTEND Internal Medicine | DX: Z12.31 Encounter for screening mammogram for malignant neoplasm of breast (principal) ==

== ENCOUNTER → 2020-10-24 | Outpatient (CLI) | payer OTHER, BC | LOC: ULTRA 09:40 | PROVIDERS: ATTEND Internal Medicine | DX: N60.01 Solitary cyst of right breast (principal); N60.02 Solitary cyst of left breast; N63.20 Unspecified lump in the left breast, unspecified quadrant; N63.10 Unspecified lump in the right breast, unspecified quadrant ==

== ENCOUNTER → 2021-01-25 | Outpatient (CLI) | payer OTHER, BC | LOC: SJCVCIMAG 08:47 | PROVIDERS: ATTEND Internal Medicine | DX: I07.1 Rheumatic tricuspid insufficiency (principal); I50.9 Heart failure, unspecified; E78.5 Hyperlipidemia, unspecified; I25.5 Ischemic cardiomyopathy ==